=== PATIENT | female | born 1990 | race Caucasian/White ===

== ENCOUNTER 2017-03-20 14:09 | Emergency (ER) | payer OTHER ==
[2017-03-20 14:28] VITALS: TEMP 97.8
[2017-03-20] MEDS ORDERED: MIDAZOLAM 2 MG/2 ML SOL IV ONE ×3 (14:31→15:16)
[2017-03-20] MEDS ORDERED: FENTANYL 100MCG/2ML SOL IV ONE ×2 (14:31→15:15)
[2017-03-20] MEDS ORDERED: MIDAZOLAM 2 MG/2 ML SOL ONE ×2 (14:47→15:12)
[2017-03-20] MEDS ORDERED: FENTANYL 100MCG/2ML SOL ONE ×2 (14:47→15:15)
[2017-03-20] MEDS ORDERED: SODIUM CHLORIDE 0.9% 500 ML SOL IV SCH (15:00)
[2017-03-20 16:44] VITALS: BP 146/81; PULSE 120; RESP 18; O2SAT 97
== END 2017-03-20 16:38 | disposition home or self-care (01) | DRG 563 ==
LOC: ED 14:09
DX: S42.291A Other displaced fracture of upper end of right humerus, initial encounter for closed fracture (principal); W19.XXXA Unspecified fall, initial encounter; Y93.64 Activity, baseball
CPT/HCPCS: 73020; 73030; 99285; J2250; J3010

== ENCOUNTER 2017-03-23 14:08 | Outpatient (CLI) | payer OTHER ==
[2017-03-20 16:44] VITALS: O2SAT 97
== END 2017-03-23 14:09 | disposition home or self-care (01) | DRG 950 ==
LOC: CONVCARE 14:08
PROVIDERS: ATTEND Orthopaedic Surgery
DX: S43.004D Unspecified dislocation of right shoulder joint, subsequent encounter (principal)
CPT/HCPCS: 73020